=== PATIENT | female | born 1970 | race Caucasian/White ===

== ENCOUNTER → 2018-03-03 | Outpatient (CLI) | payer BC ==
--- NOTE | 2018-03-03 16:43 | KCIC ---
CHEST PA LATERAL dated 03/03/2018 12:00 AM. Comparison: 06/06/2009. Clinical Indication: Cough for 2 months. Findings: PA and lateral views of the chest were obtained. Heart and mediastinal contours within normal limits. Lungs are clear without focal consolidation. Vascular interstitium within normal limits. No pleural effusion or pneumothorax. Impression: No acute radiographic abnormality. Electronically signed by: Oj Galindo MD (03/03/2018 4:40 PM) [id number]
== END | disposition home or self-care (01) ==
LOC: KCIC 16:01
PROVIDERS: ATTEND Nurse Practitioner Family
DX: R05 Cough (principal)
CPT/HCPCS: 71046

== ENCOUNTER → 2020-02-09 | Outpatient (CLI) | payer BC ==
--- NOTE | 2020-02-09 12:24 | KCIC ---
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 Comparison: None. Technique: Multiplanar multisequence MRI of the brain was performed without intravenous contrast using the standard protocol. Findings: No acute infarct. No acute or chronic hemorrhage. The ventricles are normal in size and configuration without hydrocephalus. Arising from the outer table of the left frontal calvarium is a 1.7 x 0.8 cm osseous excrescence. The pituitary and sella are normal. No Chiari malformation. Mild incompletely characterized degenerative spondylosis of the visualized upper cervical spine. The visualized orbits and globes are normal. Left maxillary sinus mucus retention cyst. The mastoid air cells are clear. Normal flow voids within the vertebral, basilar, and internal carotid arteries indicating patency. IMPRESSION: 1. 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 No intracranial extension. 2. No acute intracranial process. Electronically signed by: Vipul Parker MD (02/09/2020 12:21 PM) [id number]
== END | disposition home or self-care (01) ==
LOC: KCIC MRI 10:10
PROVIDERS: ATTEND Nurse Practitioner Family
DX: D16.4 Benign neoplasm of bones of skull and face (principal); J34.1 Cyst and mucocele of nose and nasal sinus; M47.812 Spondylosis without myelopathy or radiculopathy, cervical region
CPT/HCPCS: 70551

== ENCOUNTER → 2020-04-14 | Outpatient (CLI) | payer BC ==
--- NOTE | 2020-04-14 12:17 | KCIC ---
AP and Lateral Views of the Chest 04/14/2020 12:00 AM Indication: Reason: CHEST PRESSURE / Spl. Instructions: HX OF COVID-19 / History: Comparison: Chest radiograph February 23, 2018 Findings: There is no focal consolidation or infiltrate identified. The cardiomediastinal silhouette is within normal limits. There is no evidence of pneumothorax or pleural effusion. No acute osseous abnormalities are identified. Impression: No evidence of acute cardiopulmonary process. Electronically signed by: Jaleel Morgan MD (04/14/2020 12:14 PM) [id number]
== END ==
LOC: KCIC 11:26
PROVIDERS: ATTEND Nurse Practitioner Family
DX: R07.89 Other chest pain (principal)
CPT/HCPCS: 71046